=== PATIENT | female | born 1990 | race Caucasian/White ===

== ENCOUNTER 2023-02-20 11:55 | Emergency (ER) | payer BC ==
[2023-02-20] MEDS ORDERED: Fluorescein Opthalmic Strip ONE (12:22)
[2023-02-20] MEDS ORDERED: Tetracaine 0.5% PF 4 ML BOT ONE (12:22)
[2023-02-20 12:27] LABS: #Eosinphils 0.1 10x3/uL (0.0-0.5); #Monocytes 0.4 10x3/uL (0.0-1.1); #Neutrophils 2.9 10x3/uL (1.5-8.4); %Basophils 0.4 % (0.0-2.0); %Lymphocytes 29.2 % (18.0-47.0); Hematocrit 39.9 % (34.9-44.5); Hemoglobin 13.3 g/dL (12.0-15.5); Mean Corpuscular HGB CONC 33.3 g/dL (32.0-36.0); Mean Corpuscular Hemoglobin 30.8 pg (27.0-33.0); Mean Corpuscular Volume 92.4 fl (81.6-98.3); Mean Platelet Volume 9.4 fl (7.4-10.4); Platelet Count 212 10x3/uL (150-450); RBC Distribution Width 11.9 % (11.5-14.5); Red Blood Cell (RBC) Count 4.32 10x6/uL (3.90-5.03); White Blood Cell (WBC) Count 4.9 10x3/uL (3.5-10.5)
[2023-02-20 12:47] LABS: ALT (SGPT) 39 U/L (8-55); AST (SGOT) 23 U/L (5-34); Albumin 4.4 g/dL (3.5-5.0); Alkaline Phosphatase 54 U/L (40-110); Anion Gap 14 mmol/L (10-20); BUN (Urea Nitrogen) 7 mg/dL (7.0-18.7); Bilirubin, Total 0.2 mg/dL (0.2-1.2); Calc. Creatinine Clearance 0 mL/min (70-130); Calcium 9.2 mg/dL (7.8-10.44); Carbon Dioxide 24 mmol/L (22-29); Chloride 108 mmol/L (98-107); Estimated GFR 119; Glucose 101 mg/dL (70-105); Potassium 3.9 mmol/L (3.5-5.1); Protein, Total 7.4 g/dL (6.0-8.3); Sodium 142 mmol/L (136-145)
[2023-02-20] MEDS ORDERED: Ibuprofen 200 MG TAB ONE (13:08)
== END 2023-02-20 13:18 | disposition home or self-care (01) ==
LOC: CSHERS 11:55
DX: H53.10 Unspecified subjective visual disturbances (principal)
CPT/HCPCS: 80053; 85025; 93005